=== PATIENT | male | born 1965 | race Caucasian/White ===

== ENCOUNTER 2017-12-25 07:30 | Emergency (ER) | payer OTHER ==
[~2017-12-25] VITALS: Ht 172.7 cm; Wt 90.0 kg
[2017-12-25] MEDS ORDERED: NITROGLYCERIN OINT 1GM/INCH UDPKT TD STA (08:01)
[2017-12-25 08:48] LABS: BASOPHILS % 0.9 % (0.0-2.0); EOSINOPHILS % 2.5 % (0.0-5.0); HEMATOCRIT. 43.9 % (42.0-52.0); HEMOGLOBIN. 14.9 g/dL (14.0-18.0); LYMPHOCYTES % 35.6 % (20.0-50.0); MEAN CORPUSCULAR HEMOGLOBIN 29.3 pg (28.0-32.0); MEAN CORPUSCULAR VOLUME 86.5 fL (80.0-94.0); MEAN PLATELET VOLUME 7.8 fl (7.4-10.4); MONOCYTES % 7.6 % (2.0-8.0); NEUTROPHILS % 53.4 % (40.0-76.0); PLATELET 276 x1000/uL (130-400); RED BLOOD CELL COUNT 5.07 mill/uL (4.7-6.1); RED CELL DISTRIBUTION WIDTH 13.2 % (11.6-14.6)
[2017-12-25 08:54] LABS: CHLORIDE 106 mEq/L (98-107); PARTIAL THROMBOPLASTIN TIME 25.7 sec (23.4-31.0); PROTHROMBIN TIME 10.7 sec (9.4-11.6)
[2017-12-25 08:56] LABS: ETHANOL BLOOD < 10 mg/dL
[2017-12-25 09:49] LABS: CLARITY URINE CLOUDY (CLEAR); COLOR URINE YELLOW (YELLOW); KETONES URINE NEGATIVE (NEGATIVE); LEUKOCYTE ESTERASE URINE NEGATIVE (NEGATIVE); NITRITE URINE NEGATIVE (NEGATIVE); OCCULT BLOOD URINE NEGATIVE (NEGATIVE); PROTEIN URINE NEGATIVE (NEGATIVE); UROBILINOGEN URINE 0.2 E.U./dL (0.2-1.0)
[2017-12-25 10:01] LABS: *AMPHETAMINES SCREEN URINE NEGATIVE (NEGATIVE); CANNABINOID URINE SCREEN NEGATIVE (NEGATIVE); METHADONE URINE SCREEN NEGATIVE (NEGATIVE); PHENCYCLIDINE URINE SCREEN NEGATIVE (NEGATIVE)
[2017-12-25 10:04] LABS: *COCAINE SCREEN URINE NEGATIVE (NEGATIVE); OPIATES URINE SCREEN NEGATIVE (NEGATIVE)
[2017-12-25 10:05] LABS: *BARBITURATES SCREEN URINE NEGATIVE (NEGATIVE)
[2017-12-25 10:08] LABS: *BENZODIAZEPINES SCREEN URINE NEGATIVE (NEGATIVE)
[2017-12-25] MEDS ORDERED: ENOXAPARIN 80MG/0.8ML SYR SUBCUT ONE (10:45)
[2017-12-25 13:37] VITALS: BP 123/80
== END 2017-12-25 14:17 | disposition short-term general hospital (02) ==
LOC: ER 07:38 → CANBEDREQ 13:08 → ER 14:17
DX: I24.9 Acute ischemic heart disease, unspecified (principal); I10 Essential (primary) hypertension; K21.9 Gastro-esophageal reflux disease without esophagitis
CPT/HCPCS: 36415; 71045; 80053; 80305; 81003; 83690; 84484; 85025; 85610; 85730; 93005; 96372; 99285; G0482; J1650; Z7610